=== PATIENT | female | born 1955 | race Two or more races ===

== ENCOUNTER 2019-01-30 17:11 | Inpatient (IN) | payer MEDICAID ==
[~2019-01-30] VITALS: Ht 167.6 cm; Wt 86.0 kg
[~2019-01-30 17:11] MED LIST: AMLO5TAB10 PO; CEFD300C37 PO; CLON0.5T20 PO; ENAL20TA PO; INSU100V8 SQ; INSU100V9 SQ; LEVO100T PO; METF10007 PO; METR-90 PO; OMEP40CA42 PO; TAMS-11 PO; TRAZ150T62 PO
[2019-01-30] MEDS ORDERED: CEFD300C37 PO (17:55)
[2019-01-30] MEDS ORDERED: IBUP-1221 PO (17:56)
[2019-01-30] MEDS ORDERED: MICAFUNGIN 100 MG IV STA (18:29)
[2019-01-30] MEDS ORDERED: SODIUM CHLORIDE FLUSH 10ML SYR IVF ONE (18:30)
[2019-01-30 18:55] LABS: BASOPHILS # (AUTO) 0.01 x10^3/uL (0-0.1); BASOPHILS % (AUTO) 0 % (0-1); EOSINOPHILS # (AUTO) 0.28 x10^3/uL (0-0.4); EOSINOPHILS % (AUTO) 3 % (1-7); LYMPHOCYTES # (AUTO) 1.88 x10^3/uL (1-3.4); LYMPHOCYTES % (AUTO) 18 % (22-44); MD NO; MEAN CORPUSCULAR HEMOGLOBIN 27.9 pg (27.0-34.8); MEAN CORPUSCULAR HGB CONC 32.6 g/dL (32.4-35.8); MEAN CORPUSCULAR VOLUME 85.4 fL (80-100); MEAN PLATELET VOLUME 8.9 fL (7.4-10.4); MONOCYTES # (AUTO) 1.34 x10^3/uL (0.2-0.8); MONOCYTES % (AUTO) 13 % (2-9); NEUTROPHILS # (AUTO) 7.23 x10^3/uL (1.8-6.8); NEUTROPHILS % (AUTO) 67 % (42-75); PLATELET COUNT 274 x10^3/uL (130-400); RED BLOOD COUNT 4.26 x10^6/uL (3.82-5.3); RED CELL DISTRIBUTION WIDTH 14.3 % (9.6-15.2)
[2019-01-30] MEDS: MICAFUNGIN 100 MG in SODIUM CHLORIDE 0.9% 100 ML IV ONE ×2 (18:58→19:26)
--- NOTE | 2019-01-30 18:59 | NUR ---
PATIENT STRAIGHT CATH'D TO OBTAIN STERILE URINE SPECIMEN.
[2019-01-30] MEDS ORDERED: SODIUM CHLORIDE FLUSH 10ML SYR IVF PRN (19:00)
[2019-01-30 19:05] LABS: ALBUMIN 2.8 g/dL (3.4-5.0); ANION GAP 8 mmol/L (5-15); CALCIUM 8.2 mg/dL (8.5-10.1); CHLORIDE 104 mmol/L (98-107); CREATININE 1.15 mg/dL (0.55-1.02)
--- NOTE | 2019-01-30 19:06 | NUR ---
REPORT RECIEVED FROM JOSE ZAMORA AND JOSE TORRES
[2019-01-30 19:19] LABS: ALANINE AMINOTRANSFERASE 42 U/L (12-78); BILIRUBIN, DIRECT 0.3 mg/dL (0.1-0.2)
[2019-01-30 19:21] LABS: ALKALINE PHOSPHATASE 288 U/L (45-117); BILIRUBIN,INDIRECT 0.5 mg/dL (0.0-2.0); BILIRUBIN,TOTAL 0.8 mg/dL (0.2-1.0); TOTAL PROTEIN 7.5 g/dL (6.4-8.2)
[2019-01-30 19:22] LABS: MICROSCOPIC INDICATED
--- NOTE | 2019-01-30 19:26 | NUR ---
BLOOD CULTURES DRAWN X2. ANTIFUNGALS STARTED. PT AND FAMILY UPDATED ON POC. PT TO BE ADMITED.
[2019-01-30] MEDS ORDERED: ONDANSETRON 2MG/ML, 2ML IVPush PRN (19:30)
--- NOTE | 2019-01-30 19:33 | NUR ---
REPORT TO JOSE RUBIO
[2019-01-30 20:19] LABS: CULTURE INDICATED? NO
[2019-01-30 20:47] VITALS: BP 99/56
[2019-01-30] MEDS ORDERED: TAMSULOSIN 0.4 MG CAP.ER.24H PO SCH (21:00)
[2019-01-30] MEDS: INSULIN LISPRO 100 UNITS/ML, PEN SQ-INSULIN SCH (21:00)
[2019-01-30] MEDS: TRAZODONE 150MG TABLET PO SCH (22:40)
[2019-01-30] MEDS: SODIUM CHLORIDE 0.9% 1,000 ML IV SCH (22:42)
[2019-01-31 01:18] VITALS: BP 135/68
[2019-01-31 03:45] VITALS: BP 129/71
[2019-01-31] MEDS: IBUPROFEN 600 MG TABLET PO PRN (03:50)
[2019-01-31 05:44] VITALS: BP 100/64
[2019-01-31] MEDS: LEVOTHYROXINE 100 MCG TABLET PO SCH (05:48)
[2019-01-31 06:06] LABS: MEAN CORPUSCULAR HEMOGLOBIN 27.9 pg (27.0-34.8); MEAN CORPUSCULAR HGB CONC 32.9 g/dL (32.4-35.8); MEAN CORPUSCULAR VOLUME 84.6 fL (80-100); MEAN PLATELET VOLUME 8.6 fL (7.4-10.4); PLATELET COUNT 260 x10^3/uL (130-400); RED BLOOD COUNT 3.87 x10^6/uL (3.82-5.3); RED CELL DISTRIBUTION WIDTH 14.2 % (9.6-15.2)
[2019-01-31 06:19] LABS: ANION GAP 7 mmol/L (5-15); CHLORIDE 110 mmol/L (98-107); CREATININE 0.82 mg/dL (0.55-1.02)
[2019-01-31 06:33] LABS: BASOPHILS # (AUTO) 0.01 x10^3/uL (0-0.1); BASOPHILS % (AUTO) 0 % (0-1); EOSINOPHILS # (AUTO) 0.27 x10^3/uL (0-0.4); EOSINOPHILS % (AUTO) 2 % (1-7); LYMPHOCYTES # (AUTO) 1.64 x10^3/uL (1-3.4); LYMPHOCYTES % (AUTO) 15 % (22-44); MD SCAN; MONOCYTES % (AUTO) 13 % (2-9); NEUTROPHILS # (AUTO) 7.83 x10^3/uL (1.8-6.8); NEUTROPHILS % (AUTO) 70 % (42-75)
[2019-01-31 07:00] VITALS: BP 106/60
[2019-01-31] MEDS: INSULIN LISPRO 100 UNITS/ML, PEN SQ-INSULIN SCH ×4 (07:00→21:03)
[2019-01-31] MEDS: INSULIN GLARGINE 100 UNITS/ML, PEN SQ-INSULIN SCH (07:30)
[2019-01-31] MEDS: SODIUM CHLORIDE 0.9% 1,000 ML IV SCH ×2 (09:07→22:25)
[2019-01-31] MEDS: OMEPRAZOLE 20 MG CAPSULE.DR PO SCH (09:07)
[2019-01-31] MEDS: ENALAPRIL 20MG TABLET PO SCH (09:07)
[2019-01-31] MEDS: MICAFUNGIN 100 MG in SODIUM CHLORIDE 0.9% 100 ML IV SCH (09:07)
[2019-01-31] MEDS: AMLODIPINE 5 MG TABLET PO SCH (09:08)
[2019-01-31 14:23] VITALS: BP 116/69
[2019-01-31 19:14] VITALS: BP 121/73
[2019-01-31] MEDS: TRAZODONE 150MG TABLET PO SCH (22:25)
[2019-02-01 00:57] VITALS: BP 141/76
[2019-02-01 05:08] LABS: ANION GAP 6 mmol/L (5-15); BASOPHILS # (AUTO) 0.03 x10^3/uL (0-0.1); BASOPHILS % (AUTO) 0 % (0-1); CALCIUM 7.9 mg/dL (8.5-10.1); CHLORIDE 111 mmol/L (98-107); EOSINOPHILS # (AUTO) 0.22 x10^3/uL (0-0.4); EOSINOPHILS % (AUTO) 2 % (1-7); LYMPHOCYTES # (AUTO) 2.08 x10^3/uL (1-3.4); LYMPHOCYTES % (AUTO) 21 % (22-44); MD NO; MEAN CORPUSCULAR HEMOGLOBIN 27.7 pg (27.0-34.8); MEAN CORPUSCULAR HGB CONC 32.9 g/dL (32.4-35.8); MEAN CORPUSCULAR VOLUME 84.2 fL (80-100); MEAN PLATELET VOLUME 8.4 fL (7.4-10.4); MONOCYTES # (AUTO) 1.02 x10^3/uL (0.2-0.8); MONOCYTES % (AUTO) 10 % (2-9); NEUTROPHILS # (AUTO) 6.65 x10^3/uL (1.8-6.8); NEUTROPHILS % (AUTO) 67 % (42-75); PLATELET COUNT 336 x10^3/uL (130-400); RED BLOOD COUNT 3.92 x10^6/uL (3.82-5.3); RED CELL DISTRIBUTION WIDTH 14.4 % (9.6-15.2)
[2019-02-01] MEDS: LEVOTHYROXINE 100 MCG TABLET PO SCH (05:45)
[2019-02-01] MEDS: INSULIN LISPRO 100 UNITS/ML, PEN SQ-INSULIN SCH ×4 (07:00→20:31)
[2019-02-01 07:32] VITALS: BP 125/83
[2019-02-01] MEDS: MICAFUNGIN 100 MG in SODIUM CHLORIDE 0.9% 100 ML IV SCH (09:24)
[2019-02-01] MEDS: ENALAPRIL 20MG TABLET PO SCH (09:24)
[2019-02-01] MEDS: AMLODIPINE 5 MG TABLET PO SCH (09:24)
[2019-02-01] MEDS: SODIUM CHLORIDE 0.9% 1,000 ML IV SCH ×2 (09:24→20:31)
[2019-02-01] MEDS: OMEPRAZOLE 20 MG CAPSULE.DR PO SCH (09:25)
[2019-02-01] MEDS: INSULIN GLARGINE 100 UNITS/ML, PEN SQ-INSULIN SCH (09:28)
[2019-02-01 13:10] VITALS: BP 125/82
[2019-02-01] MEDS: predniSOLONE OPHTH SUSP 1%, 5ML HOMEOPHTH SCH ×2 (15:23→20:32)
[2019-02-01] MEDS ORDERED: PRED5DRO20 RIGHTEYE (15:26)
[2019-02-01] MEDS: TRAZODONE 150MG TABLET PO SCH (20:31)
[2019-02-01 20:44] VITALS: BP 140/61
[2019-02-02 02:23] VITALS: BP 148/74
[2019-02-02] MEDS: LEVOTHYROXINE 100 MCG TABLET PO SCH (05:37)
[2019-02-02] MEDS: SODIUM CHLORIDE 0.9% 1,000 ML IV SCH ×2 (05:40→17:16)
[2019-02-02 07:28] VITALS: BP 126/71
[2019-02-02] MEDS: INSULIN LISPRO 100 UNITS/ML, PEN SQ-INSULIN SCH ×4 (07:43→22:05)
[2019-02-02] MEDS: INSULIN GLARGINE 100 UNITS/ML, PEN SQ-INSULIN SCH (08:33)
[2019-02-02] MEDS: MICAFUNGIN 100 MG in SODIUM CHLORIDE 0.9% 100 ML IV SCH (08:33)
[2019-02-02] MEDS: predniSOLONE OPHTH SUSP 1%, 5ML HOMEOPHTH SCH ×3 (08:33→21:00)
[2019-02-02] MEDS: OMEPRAZOLE 20 MG CAPSULE.DR PO SCH (08:34)
[2019-02-02] MEDS: AMLODIPINE 5 MG TABLET PO SCH (08:34)
[2019-02-02] MEDS: ENALAPRIL 20MG TABLET PO SCH (08:34)
[2019-02-02 13:55] VITALS: BP 118/73
[2019-02-02] MEDS: ENOXAPARIN 40 MG/0.4 ML SQ SCH (17:15)
[2019-02-02] MEDS: IBUPROFEN 600 MG TABLET PO PRN (17:15)
[2019-02-02 18:09] LABS: HEMOGLOBIN A1C 6.4 % (4.2-6.3)
[2019-02-02 20:08] VITALS: BP 154/88
[2019-02-02] MEDS: TRAZODONE 150MG TABLET PO SCH (22:01)
[2019-02-03 02:39] VITALS: BP 131/66
[2019-02-03] MEDS: SODIUM CHLORIDE 0.9% 1,000 ML IV SCH ×2 (03:00→13:18)
[2019-02-03 05:42] LABS: BASOPHILS # (AUTO) 0.03 x10^3/uL (0-0.1); BASOPHILS % (AUTO) 0 % (0-1); EOSINOPHILS # (AUTO) 0.25 x10^3/uL (0-0.4); EOSINOPHILS % (AUTO) 3 % (1-7); LYMPHOCYTES % (AUTO) 26 % (22-44); MD NO; MEAN CORPUSCULAR HEMOGLOBIN 28.1 pg (27.0-34.8); MEAN CORPUSCULAR HGB CONC 32.5 g/dL (32.4-35.8); MEAN CORPUSCULAR VOLUME 86.4 fL (80-100); MEAN PLATELET VOLUME 8.4 fL (7.4-10.4); MONOCYTES % (AUTO) 11 % (2-9); NEUTROPHILS # (AUTO) 4.31 x10^3/uL (1.8-6.8); NEUTROPHILS % (AUTO) 59 % (42-75); PLATELET COUNT 376 x10^3/uL (130-400); RED BLOOD COUNT 4.05 x10^6/uL (3.82-5.3); RED CELL DISTRIBUTION WIDTH 14.4 % (9.6-15.2)
[2019-02-03 05:47] LABS: ANION GAP 8 mmol/L (5-15); CALCIUM 8.3 mg/dL (8.5-10.1); CHLORIDE 113 mmol/L (98-107); CREATININE 0.75 mg/dL (0.55-1.02)
[2019-02-03] MEDS: LEVOTHYROXINE 100 MCG TABLET PO SCH (06:07)
[2019-02-03] MEDS: INSULIN GLARGINE 100 UNITS/ML, PEN SQ-INSULIN SCH (07:30)
[2019-02-03 07:36] VITALS: BP 150/77
[2019-02-03] MEDS: AMLODIPINE 5 MG TABLET PO SCH (08:31)
[2019-02-03] MEDS: OMEPRAZOLE 20 MG CAPSULE.DR PO SCH (08:32)
[2019-02-03] MEDS: ENALAPRIL 20MG TABLET PO SCH (08:32)
[2019-02-03] MEDS: MICAFUNGIN 100 MG in SODIUM CHLORIDE 0.9% 100 ML IV SCH (08:32)
[2019-02-03] MEDS: INSULIN LISPRO 100 UNITS/ML, PEN SQ-INSULIN SCH ×4 (08:34→20:34)
[2019-02-03] MEDS: predniSOLONE OPHTH SUSP 1%, 5ML HOMEOPHTH SCH ×3 (08:35→20:35)
[2019-02-03 13:28] VITALS: BP 137/79
[2019-02-03] MEDS: ENOXAPARIN 40 MG/0.4 ML SQ SCH (17:03)
[2019-02-03] MEDS: TRAZODONE 150MG TABLET PO SCH (20:34)
[2019-02-03 20:43] VITALS: BP 129/73
[2019-02-04] MEDS: SODIUM CHLORIDE 0.9% 1,000 ML IV SCH ×3 (00:57→20:28)
[2019-02-04 02:46] VITALS: BP 114/64
[2019-02-04] MEDS: LEVOTHYROXINE 100 MCG TABLET PO SCH (06:09)
[2019-02-04 07:04] VITALS: BP 126/78
[2019-02-04] MEDS: INSULIN GLARGINE 100 UNITS/ML, PEN SQ-INSULIN SCH (07:30)
[2019-02-04] MEDS: INSULIN LISPRO 100 UNITS/ML, PEN SQ-INSULIN SCH ×4 (07:47→20:41)
[2019-02-04] MEDS: predniSOLONE OPHTH SUSP 1%, 5ML HOMEOPHTH SCH ×3 (09:00→20:28)
[2019-02-04] MEDS: AMLODIPINE 5 MG TABLET PO SCH (09:04)
[2019-02-04] MEDS: ENALAPRIL 20MG TABLET PO SCH (09:05)
[2019-02-04] MEDS: MICAFUNGIN 100 MG in SODIUM CHLORIDE 0.9% 100 ML IV SCH (09:05)
[2019-02-04] MEDS: OMEPRAZOLE 20 MG CAPSULE.DR PO SCH (09:05)
[2019-02-04 15:11] VITALS: BP 153/84
[2019-02-04] MEDS: ENOXAPARIN 40 MG/0.4 ML SQ SCH (16:54)
[2019-02-04 19:14] VITALS: BP 136/83
[2019-02-04] MEDS: TRAZODONE 150MG TABLET PO SCH (20:28)
[2019-02-05 02:39] VITALS: BP 134/76
[2019-02-05] MEDS: LEVOTHYROXINE 100 MCG TABLET PO SCH (05:50)
[2019-02-05] MEDS: SODIUM CHLORIDE 0.9% 1,000 ML IV SCH (05:50)
[2019-02-05 06:13] LABS: BASOPHILS # (AUTO) 0.03 x10^3/uL (0-0.1); BASOPHILS % (AUTO) 0 % (0-1); EOSINOPHILS # (AUTO) 0.18 x10^3/uL (0-0.4); EOSINOPHILS % (AUTO) 2 % (1-7); LYMPHOCYTES # (AUTO) 1.72 x10^3/uL (1-3.4); LYMPHOCYTES % (AUTO) 21 % (22-44); MD NO; MEAN CORPUSCULAR HEMOGLOBIN 27.9 pg (27.0-34.8); MEAN CORPUSCULAR HGB CONC 32.9 g/dL (32.4-35.8); MONOCYTES % (AUTO) 10 % (2-9); NEUTROPHILS # (AUTO) 5.39 x10^3/uL (1.8-6.8); NEUTROPHILS % (AUTO) 67 % (42-75); PLATELET COUNT 374 x10^3/uL (130-400); RED BLOOD COUNT 3.98 x10^6/uL (3.82-5.3)
[2019-02-05 06:14] LABS: HCT (SEDRATE) 33.9 % (34.6-47.8)
[2019-02-05 06:21] LABS: CHLORIDE 109 mmol/L (98-107)
[2019-02-05 06:35] LABS: ALANINE AMINOTRANSFERASE 17 U/L (12-78); ALBUMIN 2.7 g/dL (3.4-5.0); ALKALINE PHOSPHATASE 159 U/L (45-117); ANION GAP 5 mmol/L (5-15); BILIRUBIN,TOTAL 0.4 mg/dL (0.2-1.0); CALCIUM 8.4 mg/dL (8.5-10.1); CREATININE 0.82 mg/dL (0.55-1.02); TOTAL PROTEIN 6.9 g/dL (6.4-8.2)
[2019-02-05 06:52] VITALS: BP 131/73
[2019-02-05] MEDS: INSULIN GLARGINE 100 UNITS/ML, PEN SQ-INSULIN SCH (07:30)
[2019-02-05] MEDS: MICAFUNGIN 100 MG in SODIUM CHLORIDE 0.9% 100 ML IV SCH (08:45)
[2019-02-05] MEDS: predniSOLONE OPHTH SUSP 1%, 5ML HOMEOPHTH SCH (08:49)
[2019-02-05] MEDS: OMEPRAZOLE 20 MG CAPSULE.DR PO SCH (08:50)
[2019-02-05] MEDS: INSULIN LISPRO 100 UNITS/ML, PEN SQ-INSULIN SCH ×2 (08:50→12:10)
[2019-02-05] MEDS: AMLODIPINE 5 MG TABLET PO SCH (08:51)
[2019-02-05] MEDS: ENALAPRIL 20MG TABLET PO SCH (08:51)
[2019-02-05 13:00] VITALS: BP 110/65
[2019-02-06] MEDS ORDERED: predniSOLONE OPHTH SUSP 1%, 5ML HOMEOPHTH SCH (09:00)
[2019-02-13] MEDS ORDERED: predniSOLONE OPHTH SUSP 1%, 5ML HOMEOPHTH SCH (09:00)
== END 2019-02-05 16:31 | disposition home or self-care (01) | DRG 463 ==
LOC: ED 18:45 → EDIP 18:50 → MERGE 18:50 → ED 19:24 → 3N 20:34 → DCLOUNGE 02-05 16:22
PROVIDERS: ADMIT Internal Medicine; ATTEND Internal Medicine
PROC: 0T9B70Z Drainage of Bladder with Drainage Device, Via Natural or Artificial Opening (ICD-10-PCS; 2019-01-30)
PROC: 02HV33Z Insertion of Infusion Device into Superior Vena Cava, Percutaneous Approach (ICD-10-PCS; principal; 2019-02-04)
PROC: B5181ZA Fluoroscopy of Superior Vena Cava using Low Osmolar Contrast, Guidance (ICD-10-PCS; 2019-02-04)
PROC: B548ZZA Ultrasonography of Superior Vena Cava, Guidance (ICD-10-PCS; 2019-02-04)
DX: N39.0 Urinary tract infection, site not specified (principal); R78.81 Bacteremia; E03.9 Hypothyroidism, unspecified; E11.36 Type 2 diabetes mellitus with diabetic cataract; E66.9 Obesity, unspecified; Z68.30 Body mass index [BMI] 30.0-30.9, adult; F32.9 Major depressive disorder, single episode, unspecified; F41.1 Generalized anxiety disorder; I10 Essential (primary) hypertension; I35.8 Other nonrheumatic aortic valve disorders; Z79.890 Hormone replacement therapy; Z88.6 Allergy status to analgesic agent; Z79.899 Other long term (current) drug therapy; Z88.8 Allergy status to other drugs, medicaments and biological substances; Z87.442 Personal history of urinary calculi
CPT/HCPCS: 36415; 36573; 74018; 80048; 80053; 80076; 81001; 82040; 82962; 83036; 83605; 83735; 84145; 85025; 85651; 86140; 87040; 93306; 99285; G0378; J1650; J2248; C1751; J1815; J7030